=== PATIENT | female | born 1990 | race Caucasian/White ===

== ENCOUNTER 2019-04-04 13:31 | Inpatient (IN) | payer BC ==
--- OUTSIDE RECORDS SUMMARY | 2019-04-04 13:33 | XMS REPORT ---
:1990 Author Organization [employer] Care Team Providers Name Role Phone Jose Chakraborty Provider Role Unavailable Allergies, Adverse Reactions, Alerts Substance Reaction Event Type N.K.D.A. Info Not Available Non Drug Allergy Problems Problem Type Condition Code Onset Dates Condition Status Assessment Encounter for supervision of normal Z34.03 Active first in third trimester Problem Need for Tdap vaccination Z23 Active Problem Encounter for supervision of normal Z34.02 Active first in second trimester Problem Encounter for supervision of normal Z34.03 Active first in third trimester Problem Anxiety F41.9 Active Problem History of melanoma Z85.820 Active Problem Missed menses N92.6 Active Medications Medication Code System Code Instructions Start Date End Date Status Dosage Chf-Xce-Dhno NDC 0 333-133-5 MG Active 1 tablet with Orally Three meals times a day DHA NDC 0 300 MG Orally Active as directed Results No Known Results Summary Purpose eClinical[employer] Submission
--- OUTSIDE RECORDS SUMMARY | 2019-04-04 13:33 | XMS REPORT | Continuity of Care Document ---
:1990 Author Organization [facility] Care Team Providers Name Role Phone [facility] Unavailable Unavailable Problems Problem Status Onset Classification Date Comments Source Date Reported Acute sinusitis Problem 08/22/2016 [facility] Acute Problem 08/22/2016 [facility] pharyngitis Acute upper Problem 08/22/2016 [facility] respiratory infection Medications Medication Details Route Status Patient Ordering Order Source Instructions Provider Date Brompheniramine Bromfed DM 2 Active [facility] Maleate 0.4 MG/ML mg-30 mg-10 / Dextromethorphan mg/5 mL syrup Hydrobromide 2 Take 10 mL MG/ML / every 6 hours Pseudoephedrine by oral route Hydrochloride 6 as needed for MG/ML Oral 5 days. Solution [Bromfed DM] Levonorgestrel Mirena 20 Active [facility] 0.131125 MG/HR mcg/24 hr (5 Intrauterine years) System [Mirena] intrauterine device Take by intrauterine route. Prednisone 20 MG prednisone 20 Active [facility] Oral Tablet mg tablet Take 2 tablets every day by oral route with meals for 3 days. Allergies, Adverse Reactions, Alerts No Known Medication Allergies Immunizations Immunization Date Given Site Status Last Comments Source Updated influenza, 04/12/2016 completed [facility] seasonal, injectable influenza, 03/13/2013 completed [facility] seasonal, injectable Results Order Results Value Reference Date Interpretation Comments Source Name Range Influenza A negative 08/22/ [facility] 2016 Influenza B negative 08/22/ [facility] 2016 Pathology Reports No Data Provided for This Section Diagnostic Reports No Data Provided for This Section Consultation Notes No Data Provided for This Section Discharge Summaries No Data Provided for This Section History and Physicals No Data Provided for This Section Vital Signs Vital Sign Value Date Comments Source Diastolic (mm Hg) 58 08/22/2016 [facility] Height 63 08/22/2016 [facility] Systolic (mm Hg) 106 08/22/2016 [facility] Weight 125 08/22/2016 [facility] Encounters Location Location Encounter Encounter Reason Attending ADM DC Status Source Details Type Number For Provider Date Date Visit [place] - [place] [id number] [place] 08/22 [facility] Javier, [id number] Javier - [facility]: [id number] [facility] [place] [address] , Ph. Procedures No Data Provided for This Section Assessment and Plan No Data Provided for This Section Plan of Care No Data Provided for This Section Social History Social History Date Source Smoking Status 02/21/2014 [facility] Never Smoker Family History No Data Provided for This Section Advance Directives No Data Provided for This Section Functional Status No Data Provided for This Section
[2019-04-04] MEDS ORDERED: CARBOPROST TROME 250 MCG/ML IM PRN (15:44)
[2019-04-04] MEDS ORDERED: Ringers Lactate 1,000 ML IV PRN (15:44)
[2019-04-04] MEDS ORDERED: METHYLERGONOVINE 0.2MG/ML AMP IM PRN (15:44)
[2019-04-04] MEDS ORDERED: ROPIVACAINE HCL 100 ML IV PRN (15:57)
[2019-04-04] MEDS ORDERED: ROPIVACAINE HCL 0.2% 20ML AMP IV ONE (15:58)
[2019-04-04] MEDS ORDERED: Ringers Lactate 1,000 ML IV SCH (16:00)
[2019-04-04] MEDS ORDERED: OXYTOCIN/LR 20 UNIT/1,000 ML BAG IV SCH (16:00)
[2019-04-04] MEDS ORDERED: FENTANYL CITR 100 MCG/2 ML ONE (16:14)
[2019-04-04 16:36] LABS: Absolute Lymphocytes (CBC) 1.5 K/uL (0.7-4.9); Basophils % 0.3 % (0-1.3); Hematocrit 35.1 % (36.0-45.0); Lymphocytes % 11.2 % (15.3-44.8); MPV 8.5 fL (7.6-11.3); RBC Red Blood Cell Count 3.87 M/uL (3.86-4.86)
[2019-04-04 17:14] LABS: Blood Morphology Comment NOT SEEN (NOT SEEN); Platelet Estimate ADEQ; Urine White Blood Cell Casts OK
[2019-04-04] MEDS ORDERED: LIDOCAINE 2% INJ, 20 mL 20 ML ONE (17:15)
[2019-04-04 17:21] VITALS: BMI 26.5
[2019-04-04] MEDS ORDERED: ACETAMINOPHEN 500 MG TAB PO PRN (17:57)
[2019-04-04] MEDS ORDERED: METHYLERGONOVINE 0.2 MG TAB PO PRN (17:57)
[2019-04-04] MEDS ORDERED: BISACODYL 10 MG RECTAL SUPP RECT PRN (17:57)
[2019-04-04] MEDS ORDERED: DOCUSATE NA/SENNA CONC 1 TAB PO PRN (17:57)
[2019-04-04] MEDS ORDERED: ONDANSETRON 4 MG (ODT) TAB PO PRN (17:57)
--- NOTE | 2019-04-04 18:00 | P.OBGYNHP ---
Certification for Inpatient Patient admitted to: Inpatient With expected LOS: <2 Midnights Patient will require the following post-hospital care: None Practitioner: I am a practitioner with admitting privileges, knowledge of patient current condition, hospital course, and medical plan of care. Services: Services provided to patient in accordance with Admission requirements found in Title 42 Section 412.3 of the Code of Federal Regulations Patient History Date of Service: 04/04/19 Reason for admission: LABOR History of Present Illness: Patient is a 29 y/o at 39 weeks gestation who presents in active labor. Patient states that she began to feel uncomfortable around 4AM. She has been having some pinkish discharge all day. She denied bright red bleeding. She has been having irregular contractions, and reports good movements. Patient has obtained care with [facility] beginning at 11 weeks gestation. She has been compliant with care. She has had an uncomplicated . Total weight gain 32 lbs. NIPT low risk. One hour glucose screen was elevated 3 hour glucose tolerance test was negative. See record for further details. Allergies No Known Allergies Allergy (Unverified 04/04/19 15:44) Home medications list reviewed: Yes Home Medications: Ferrous Sulfate [Iron] 1 tab PO DAILY 04/04/19 Vitamin [ VITAMIN*] 1 tab PO DAILY 04/04/19 - Past Medical/Surgical History Has patient received pneumonia vaccine in the past: No -: Anxiety -: Depression -: Fibroid tumors Past Surgical History: Patient denies surgical history - Family History Family History: Reviewed- Non-Contributory - Social History Smoking Status: Never smoker Alcohol use: No CD- Drugs: No Caffeine use: No Review of Systems 10-point ROS is otherwise unremarkable Physical Examination - Vital Signs Temperature: 97.5 F Blood Pressure: 138/79 Pulse: 86 Respirations: 18 - General General: Alert, Oriented x3, Moderate distress HEENT: Atraumatic Neck: Supple Respiratory: Normal air movement Cardiovascular: No edema, Normal pulses Breasts: Normal configuration, Normal contours Gastrointestinal: Other (Gravid abdomen) Musculoskeletal: No clubbing, No swelling - Female Pelvic External genitalia: Normal Vagina: Normal, [place], Moist Cervix: Dilation (fully dilated), Effacement (100%), station (0) Uterus: Gravid Adnexa: Unable to evaluate - Obstetrics heart rate tracing: Category 2 Contractions: Frequency Amniotic membrane: AROM (meconium fluid) Laboratory Data (last 24 hrs) 04/04/19 16:00: WBC 13.7 H, Hgb 12.3, Hct 35.1 L, Plt Count 208 Assessment and Plan - Plan 29 y/o at 39 weeks gestation who presents in active labor who has rapidly dilated from 2 cm and is now fully dilated. She is GBS negative. Fluid is meconium stained. Patient has received an epidural. She is going to begin pushing. Anticipate vaginal . Routine intrapartum and care to be provided. Discharge Plan: Home Plan to discharge in: 48 Hours - Advance Directives Does patient have a Living Will: No Does patient have a Durable POA for Healthcare: No
[2019-04-04 18:12] LABS: Urine Appearance CLEAR; Urine Bilirubin NEGATIVE (NEG); Urine Blood 3+ (NEG); Urine Color YELLOW; Urine Glucose NEGATIVE (NEG); Urine Protein NEGATIVE (NEG); Urine Specific Gravity <=1.005 (1.005-1.030); Urine Urobilinogen 0.2 mg/dL (0.2-1.0); Urine pH 7.5 (5.0-7.0)
[2019-04-04 18:15] LABS: Urine Microscopic Reflex ORDER UMIC
[2019-04-04] MEDS ORDERED: LIDOCAINE 2% 20 ML MDV IV ONE (18:35)
[2019-04-04 18:38] LABS: Urine Bacteria <20 /HPF (<20); Urine Culture Reflex Order NOT NEEDED
[2019-04-04] MEDS: IBUPROFEN 200 MG TAB PO PRN (20:58)
[2019-04-05] MEDS: Oxycodone HCl/Acetaminophen 1 TAB TAB PO PRN ×3 (01:59→18:10)
[2019-04-05 04:49] LABS: Absolute Lymphocytes (CBC) 2.3 K/uL (0.7-4.9); Basophils % 0.2 % (0-1.3); Hematocrit 29.9 % (36.0-45.0); Lymphocytes % 15.5 % (15.3-44.8); MPV 8.3 fL (7.6-11.3); RBC Red Blood Cell Count 3.31 M/uL (3.86-4.86)
[2019-04-05] MEDS: IBUPROFEN 200 MG TAB PO PRN ×2 (13:00→21:17)
[2019-04-05 21:04] VITALS: BP 135/89; TEMP 98.4
[2019-04-05 22:24] LABS: RPR (Rapid Plasma Reagin) NON-REACT (NON-REACT)
--- NOTE | 2019-04-05 22:41 | P.DS ---
Admission Date: 04/04/19 Discharge Date: 04/05/19 Disposition: ROUTINE DISCHARGE Discharge Condition: GOOD Reason for Admission: LABOR Brief History of Present Illness: Patient is a 29 y/o at 39 weeks gestation who presents in active labor. Patient states that she began to feel uncomfortable around 4AM. She has been having some pinkish discharge all day. She denied bright red bleeding. She has been having irregular contractions, and reports good movements. Patient has obtained care with [facility] beginning at 11 weeks gestation. She has been compliant with care. She has had an uncomplicated . Total weight gain 32 lbs. NIPT low risk. One hour glucose screen was elevated 3 hour glucose tolerance test was negative. See record for further details. Hospital Course: Patient did well following delivery of baby. She has been bonding well. She denies any issues. Pain is well managed. Bleeding is normal. Patient is tolerating regular diet. She is breast feeding. Vital Signs/Physical Exam: Temp Pulse Resp BP Pulse Ox 98.4 F 66 18 135/89 98 04/05/19 20:00 04/05/19 20:00 04/05/19 20:00 04/05/19 20:00 04/05/19 04:00 General: Alert, In no apparent distress HEENT: Atraumatic Neck: Supple Respiratory: Normal air movement Cardiovascular: No edema, Normal pulses Gastrointestinal: Soft and benign (Fundus firm and palpable beneath umbilicus) Musculoskeletal: No clubbing, No swelling Laboratory Data at Discharge: WBC 14.6 K/uL (4.3-10.9) H 04/05/19 04:15 Hgb 10.9 g/dL (12.0-15.0) L 04/05/19 04:15 Hct 29.9 % (36.0-45.0) L 04/05/19 04:15 Plt Count 163 K/uL (152-406) D 04/05/19 04:15 Home Medications: Ferrous Sulfate [Iron] 1 tab PO DAILY 04/04/19 Vitamin [ VITAMIN*] 1 tab PO DAILY 04/04/19 Diet: Regular Activity: No lifting more than 10 lbs Followup: Jose Chakraborty, [ACTIVE - CAN ADMIT] - (Follow up with Dr. Chakraborty in 2-3 weeks. Call for an appointment.)
[2019-04-08 20:50] LABS: HBsAG Nonreactive (Nonreactive)
--- NOTE | 2019-04-20 15:30 | P.OP ---
Date of Service: 04/04/19 Findings and Operative Technique Patient is a 29 y/o at 39+ weeks gestation who was admitted for active labor. Patient received an epidural. Patient then delivered a viable female in cephalic presentation on 04/04/19 at 17:36 over a midline episiotomy. Once was delivered, the nose and mouth was suctioned with a suction bulb. Cord was clamped and cut. Infant was then placed on mother's abdomen for skin to skin bonding. Umbilical cord blood was obtained. Placenta was then delivered with gentle traction at 17:38. Placenta was noted to be intact. Perineum was noted to be a 2nd degree laceration and was repaired with a 2.0 vicryl in usual fashion. Uterine fundus was massaged and found to be firm. Both mom and baby are doing well. First stage of labor was 7 hours and 10 minutes. Second stage of labor was 26 minutes. APGARS were 9/9. Weight was found to be 5 lb 12 ounces. EBL was 250 cc.
== END 2019-04-05 21:50 | disposition home or self-care (01) | DRG 807 ==
LOC: L&D 13:31 → 2ND-WC 15:11 → UNDOADMIN 15:11
PROVIDERS: ADMIT Student in an Organized Health Care Education/Training Program; ATTEND Student in an Organized Health Care Education/Training Program
PROC: 10E0XZZ Delivery of Products of Conception, External Approach (ICD-10-PCS; principal; 2019-04-04)
PROC: 0KQM0ZZ Repair Perineum Muscle, Open Approach (ICD-10-PCS; 2019-04-04)
PROC: 0W8NXZZ Division of Female Perineum, External Approach (ICD-10-PCS; 2019-04-04)
DX: O70.1 Second degree perineal laceration during delivery (principal); Z37.0 Single live birth; Z3A.39 39 weeks gestation of pregnancy
CPT/HCPCS: 36415; 81003; 81015; 85025; 86592; 86901; 87340; 88307; J2210; J2590; J2795; J3010